=== PATIENT | male | born 1995 | race Caucasian/White ===

== ENCOUNTER 2022-11-16 20:19 | Emergency (ER) | payer BC, OTHER ==
[2022-11-16 21:47] LABS: HIV (1/2) Antibody/Antigen Non-Reactive (NonReactive); HIV 1/2 INDEX 0.19 S/CO (<1.00); Hep C IgG Ab Non-Reactive S/CO (NonReactive)
[2022-11-16 21:54] LABS: HBSAB Concentration 254.57 mIU/mL; Hep B Surf AB Reactive (NonReactive)
[2022-11-17 00:03] LABS: Hep C Index 0.24 S/CO (0-0.79)
== END 2022-11-16 21:10 | disposition home or self-care (01) ==
LOC: ERS 20:19
DX: Z77.21 Contact with and (suspected) exposure to potentially hazardous body fluids (principal)
CPT/HCPCS: 36415; 99283